=== PATIENT | male | born 1980 | race Caucasian/White ===

== ENCOUNTER 2018-07-18 06:12 | Observation (INO) ==
[2018-07-18 06:18] LABS: BASO# 0.02 X1000 (0.0-0.2); BASO% 0.4 % (0.0-0.8); EOS# 0.03 X1000 (0.0-0.7); EOS% 0.6 % (0.0-10.0); HEMATOCRIT 39.3 % (42.0-52.0); HEMOGLOBIN 13.5 g/dL (14.0-18.0); LYMPH% 27.5 % (20.5-51.1); MCH 29.9 PG (27-31); MCHC 34.4 g/dL (33-37); MCV 86.9 FL (81-99); MONO% 5.9 % (1.7-9.3); MPV 9.6 FL (7.4-10.4); NEUT# 3.34 X1000 (1.4-6.5); NEUT% 65.6 % (42.2-75.2); PLT 204 X1000 (130-400); RBC 4.52 XMIL (4.7-6.1); RDW 12.3 % (11.5-14.5); WBC 5.09 X1000 (4.8-10.8)
--- NOTE | 2018-07-18 06:19 | PROVIDER DOCUMENTATION ---
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 Pain Radiation: reports: no radiation Quality of Pain: reports: burning Severity: reports: moderate Onset/Duration: reports: abrupt, just prior to arrival Timing: reports: gone now Context/Activities at Onset: reports: light activity Modifying Factors: improves with: nothing Associated Symptoms: reports: denies symptoms. denies: anxiety, cough Similar Symptoms Previously?: No Recently seen or treated by another doctor?: No Review of Systems - Adult - REVIEW OF SYSTEMS - ADULT Constitutional: denies: fever, fatique Eyes: reports: no symptoms reported Ears, Nose, Mouth & Throat: reports: no symptoms reported Cardiovascular: reports: chest pain Respiratory: reports: no symptoms reported Gastrointestinal: reports: no symptoms reported Genitourinary: reports: no symptoms reported Musculoskeletal: reports: no symptoms reported Integumentary: reports: no symptoms reported Neurological: reports: no symptoms reported Psychiatric: reports: no symptoms reported Endocrine: reports: no symptoms reported Hematologic/Lymphatic: reports: no symptoms reported Allergic/Immunologic: reports: no symptoms reported Past History - Adult - PAST MEDICAL HISTORY-ADULT Review of Records: reports: Nursing Assessment Review Physical Exam-General - PHYSICAL EXAM-ADULT Initial Vital Signs Reviewed: Yes - CONSTITUTIONAL General Appearance: appears well, alert - EYES Eyes: PERRL/EOMI - HEAD, EARS, NOSE, MOUTH & THROAT HENMT: normocephalic/atraumatic - NECK Neck: non-tender, full range of motion, supple, normal inspection - RESPIRATORY Respiratory: chest non-tender, lungs clear - CARDIOVASCULAR Cardiovascular: normal peripheral pulses, regular rate, rhythm, no edema, no gallop, no JVD, no murmur - GASTROINTESTINAL (ABDOMEN) Abdominal Exam: normal bowel sounds, non tender, soft - LYMPHATIC Lymphatic: no adenopathy - MUSCULOSKELETAL Back Exam: normal inspection, no CVA tenderness, no vertebral tenderness Extremity: normal range of motion, non-tender, normal gait, normal inspection, n o pedal edema, no calf tenderness - SKIN Integumentary: normal color - NEUROLOGIC Neurologic: ham boner II-XII nml as tested, grossly normal, no motor/sensory deficits - PSYCHIATRIC Psych/Mental Status: normal mood/affect Progress - PLAN OF CARE/RESULTS Progress/Plan/Lab Results: Vital Signs - 8 hr 07/18/18 06:00 Temperature 99 F Pulse Rate 78 Respiratory Rate 18 Blood Pressure 143/76 O2 Sat by Pulse Oximetry 98 Orders Category Date Time Status CBC WITH DIFF [HEME] Stat Lab 07/18/18 06:04 Results CK PROFILE [SP CHEM] Stat Lab 07/18/18 06:04 Received COMPREHENSIVE METABOLIC PANEL [CHEM] Stat Lab 07/18/18 06:04 Received TROPONIN T Stat Lab 07/18/18 06:04 Received Result Diagrams: 07/18/18 06:04 07/18/18 06:04 - REASSESSMENT Reassessment #1 Time Reassessed: 08:05 (assumed care @ S/O. Pt seen, examined. Was sitting @ wortk, sudden onset of burning/pressure/tight CP (pt uses all 3 terms to describe) along with SOB, says felt like was going to pass out, vision blurred. Went to EMT @ work, BP was high. was given Nitro spray. Pain non radiating, no N/V. Did have palpitations. No personal/family hx CAD. Does not smoke. No energy/undue caffiene use. ) Status: improving - EKG 1 Time of EKG reading by physician:: 06:24 EKG Interpretation (*Must complete 3 of following elements*): Normal [place]: normal QRS: normal DE Interval: normal ST Wave: normal Prior EKG Comparison: no prior EKG - CONSULTS/PCP/HOSPITALIST Notification #1 *Consult/PCP/Hospitalist*: Angulo Time Discussed: 10:55 Consult Disposition: Will see in ED, Admit - CHANGE OF SHIFT REPORT (ED Provider) 1 Report Given and Care Transferred to:: Rodolfo Time of Transfer: 07:00 Items Pending: Labs Departure - Departure Date of Disposition Decision: 07/18/18 Time of Disposition Decision: 10:55 DIAGNOSIS: Chest pain at rest, Hypocalcemia Disposition: ADMITTED INPATIENT 09 Certified Medical Emergency: Emergent Condition: Good Referrals and Follow-Ups: Radha Ya MD [Primary Care Provider] - - Critical Care Note This patient required my direct & personal management of CC.: No Attestation - Physician/ JARAD Attestation Patient care was provided by Advanced Practice Provider:: No The physician spent face to face time with patient:: Yes Advanced Practice Provider documentation review:: Supervising physician onsite and consulted in the evaluation and care of this patient. The physician did have a face to face encounter with the patient.
[2018-07-18 07:09] LABS: AGAP 10; ALB/GLOB RATIO 1.9; ALBUMIN 3.4 g/dL (3.5-5.0); ALKALINE PHOSPHATASE 51 U/L (32-122); BUN 14 mg/dL (8-22); CHLORIDE 112 mmol/L (98-107); CK PROFILE 81 U/L (24-204); COSMO 284; CREATININE 0.9 mg/dL (0.7-1.2); ESTIMATED GFR > 60; GLUCOSE 100 mg/dL (70-104); GOT 15 U/L (10-34); GPT 19 U/L (10-44); SODIUM 142 mmol/L (136-145); TCO2 20 mmol/L (25-35); TOTAL BILIRUBIN 0.17 mg/dL (0.20-1.00); TOTAL PROTEIN 5.2 g/dL (6.3-8.3)
[2018-07-18 07:18] LABS: UR AMPHETAMINES QUAL NONE DETECTED (NONE DETECT); UR BARBITUATES QUAL NONE DETECTED (NONE DETECT); UR BENZODIAZEPIN QUAL NONE DETECTED (NONE DETECT); UR CANNABINOIDS QUAL NONE DETECTED (NONE DETECT); UR COCAINE QUAL NONE DETECTED (NONE DETECT); UR METHADONE QUAL NONE DETECTED (NONE DETECT); UR OPIATES QUAL NONE DETECTED (NONE DETECT); UR OXYCODONE QUAL NONE DETECTED (NONE DETECT); UR PCP QUAL NONE DETECTED (NONE DETECT)
--- NOTE | 2018-07-18 08:24 | Diag Imaging Result Doc PS360 ---
CHEST-2 VIEWS - 07/18/2018 INDICATION: short of breath COMPARISON: None FINDINGS: The lungs are normally expanded and clear. Heart size and mediastinal contours are normal. No pneumothorax or pleural effusion. IMPRESSION: Negative exam. Electronically signed by Robert Rendon 07/18/2018 8:21 AM
--- NOTE | 2018-07-18 08:51 | EKG Report ---
Test Performed on : 07/18/2018 05:59:34 AM Test Reason : ED. NO EKG ORDER FOR MUSE Blood Pressure : / mmHG Vent. Rate : 085 BPM Atrial Rate : 085 BPM P-R Int : 132 ms QRS Dur : 086 ms QT Int : 360 ms P-R-T Axes : 035 035 021 degrees QTc Int : 428 ms Normal sinus rhythm. Normal ECG No previous ECGs available Unconfirmed Result
[2018-07-18] MEDS ORDERED: CALCIUM CHLORIDE 1 GM in NS 100 ML IV ONE (09:31)
[2018-07-18] MEDS ORDERED: POTASSIUM CHLORIDE 20% LIQUID PO ONE (09:31)
[2018-07-18] MEDS ORDERED: CALCIUM GLUCONATE 2 GM in NS 100 ML IV ONE (09:37)
[2018-07-18 10:02] LABS: MAGNESIUM 1.5 mg/dL (1.5-2.7); PHOSPHORUS 2.4 mg/dL (2.7-4.5)
[2018-07-18] MEDS ORDERED: CALCIUM GLUCONATE 2 GM in D5W 100 ML IV ONE (10:15)
[2018-07-18] MEDS ORDERED: SODIUM CHLORIDE 0.9% INJ SCH (11:15)
[2018-07-18] MEDS ORDERED: PROTONIX IV SCH (11:15)
--- NOTE | 2018-07-18 15:32 | HISTORY AND PHYSICAL ---
PRIMARY CARE PROVIDER: Dr. Radha Ya. CHIEF COMPLAINT: Heart racing, palpitations, tightness in chest. HISTORY OF PRESENT ILLNESS: Mr. Villar is a pleasant 38-year-old male, who really carries no past medical history, except for some complaints of occasional GERD. 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 Around 0430 hours, he started to feel like he was going to pass out. He got disoriented and weak. Heart was racing with palpitations and some chest tightness. He became shaky, blurry vision, shortness of breath, a warm sensation across his chest. He did not have any associated nausea, vomiting, diaphoresis, or headache. However, he went to the EMT at his work, and his blood pressure they took 3 times was high at EMS. He said it was around 210/160. This all lasted until he was given sublingual nitroglycerin spray, as well as an aspirin. He felt like in the ER, he was about to have another episode; however, it went away quickly. He states he does still feel a little off, but he has been up for almost 24 hours. So, just really more of a tiredness now. We have already sent him for a stress test and echocardiogram. We are currently awaiting those results. He had several lab abnormalities. His chloride was a little elevated. His calcium was low at 7.0. His phos was low at 2.4. His urinalysis and tox screen were negative. His electrolytes have been replenished. We will recheck those in the a.m. Again, we are awaiting the results of his echocardiogram, as well as his stress test. He is admitted to the medical telemetry floor for further evaluation and treatment. PAST MEDICAL HISTORY: Occasional GERD. PAST SURGICAL HISTORY: None. SOCIAL HISTORY: He is . He has a 14-year-old daughter. He lives here in [place]. He works at a [employer] out by [place] where he works lieutenant shift supervisor. No alcohol, tobacco, or illicit drug use. FAMILY HISTORY: He has a sister who has -related cardiomyopathy and several issues over the years with that. Father, mother, brother, sister with hypertension. No FL's. No cancer. Grandmother on his mother's side has a remote history of breast cancer. ALLERGIES: No known drug allergies. HOME MEDICATIONS: None. REVIEW OF SYSTEMS: A 14 point review of systems completely negative, except for those mentioned in HPI. PHYSICAL EXAMINATION: VITAL SIGNS: Temperature was 99 degrees, heart rate 78, respirations 18, blood pressure 143/76, O2 is 97% to 99% on room air. GENERAL: Mr. Villar is a pleasant 38-year-old male, who is lying in the bed in no acute distress. HEENT: Atraumatic, normocephalic. PERRL. NECK: Supple. Trachea midline. CARDIOVASCULAR: S1, S2 appreciated. No murmurs, gallops, rubs noted. RESPIRATORY: Lung sounds clear bilaterally. ABDOMEN: Soft, nontender, nondistended. Positive bowel sounds 4 quadrants. EXTREMITIES: Negative for edema. Bilateral pedal pulses are palpable. No clubbing, no cyanosis. SKIN: Warm, dry, and intact. NEUROLOGIC: No focal deficits noted. DIAGNOSTIC DATA: Chest x-ray: Negative exam. Initial EKG: Normal sinus rhythm at 85 beats per minute. LABORATORY DATA: White count 5, hemoglobin and hematocrit 13 and 39, platelet count is 204. Sodium 142, potassium 4.1, chloride 112, carbon dioxide 20. BUN 14, creatinine 0.9, blood glucose 100, calcium 7, phosphorus 2.4, Mag 1.5, T- bilirubin 0.17, albumin 3.4. Toxicology screen negative. ASSESSMENT AND PLAN: 1. Hypocalcemia and hypophosphatemia. Will continue to replenish his electrolytes. 2. Hypertensive episode that has since resolved with the administration of nitroglycerin and aspirin. We will continue to monitor his blood pressures. 3. Chest discomfort. Will rule out myocardial infarction. We will check an echocardiogram, stress test. Again, we will continue to trend his cardiac enzymes and, based on his test results, we will consult Cardiology as needed. We will follow up with his thyroid stimulating hormone. He is currently chest pain-free. 4. Gastroesophageal reflux disease, occasional. Aware. Further recommendations to follow physician evaluation, laboratory and diagnostic data. Dictated by YANA Schmitt for Mason Serna MD cc: Mason Serna MD
[2018-07-19 07:39] LABS: BASO# 0.02 X1000 (0.0-0.2); BASO% 0.4 % (0.0-0.8); EOS# 0.05 X1000 (0.0-0.7); EOS% 0.9 % (0.0-10.0); HEMATOCRIT 44.7 % (42.0-52.0); HEMOGLOBIN 15.5 g/dL (14.0-18.0); LYMPH# 2.27 X1000 (1.2-3.4); LYMPH% 40.2 % (20.5-51.1); MCH 30.3 PG (27-31); MCHC 34.7 g/dL (33-37); MCV 87.5 FL (81-99); MONO% 8.9 % (1.7-9.3); MPV 9.9 FL (7.4-10.4); NEUT% 49.6 % (42.2-75.2); PLT 223 X1000 (130-400); RBC 5.11 XMIL (4.7-6.1); RDW 12.8 % (11.5-14.5); WBC 5.64 X1000 (4.8-10.8)
--- NOTE | 2018-07-19 07:44 | EKG Report ---
Test Performed on : 07/19/2018 07:25:20 AM Test Reason : CP Blood Pressure : / mmHG Vent. Rate : 058 BPM Atrial Rate : 058 BPM P-R Int : 144 ms QRS Dur : 092 ms QT Int : 428 ms P-R-T Axes : 049 049 050 degrees QTc Int : 420 ms Sinus bradycardia. with marked sinus arrhythmia. Otherwise normal ECG When compared with ECG of 18-JUL-2018 05:59, (Unconfirmed) Nonspecific T wave abnormality no longer evident in Inferior leads Confirmed by Pavel LEI, Tonio ([id number]) on 07/19/2018 8:40:49 AM
[2018-07-19 08:04] LABS: AGAP 12; ALB/GLOB RATIO 1.7; ALBUMIN 4.2 g/dL (3.5-5.0); ALKALINE PHOSPHATASE 63 U/L (32-122); BUN 19 mg/dL (8-22); CALCIUM 8.7 mg/dL (8.8-10.2); CHLORIDE 105 mmol/L (98-107); COSMO 283; ESTIMATED GFR > 60; GLUCOSE 89 mg/dL (70-104); GOT 20 U/L (10-34); GPT 25 U/L (10-44); MAGNESIUM 1.9 mg/dL (1.5-2.7); POTASSIUM 4.1 mmol/L (3.5-5.1); SODIUM 141 mmol/L (136-145); TCO2 24 mmol/L (25-35); TOTAL BILIRUBIN 0.46 mg/dL (0.20-1.00); TOTAL PROTEIN 6.7 g/dL (6.3-8.3)
[2018-07-19 12:00] VITALS: BP 115/73
[2018-07-19 14:17] LABS: CHOLESTEROL 198 mg/dL (0-200); HDL 42 mg/dL (35-55); LDL 142 mg/dL; TRIGLYCERIDES 72 mg/dL (39-160); URIC ACID 6.8 mg/dL (3.4-7.0); VLDL 14 mg/dL
--- NOTE | 2018-07-19 14:25 | CARDIOLOGY CONSULTATION ---
DATE: 07/19/2018 CONSULTATION REQUESTED BY: Hospitalist Service REASON FOR CONSULTATION: Abnormal echocardiogram with hypertension, uncontrolled. HISTORY: Mr. Villar is a 38-year-old, male, who was at work at about 4 o'clock in the morning on July 18 when suddenly he developed a sensation of dizziness, lightheadedness. He felt like something "hit him" suddenly. He had a sensation of warmth in the chest. 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 They checked his blood pressure 3 times and it was very high with systolic in the range of 210 to 220 mmHg. He felt his heart pumping hard. He had a little bit of blurred vision. At that time, they decided to summon the emergency medical services. He was brought to this hospital for evaluation. In the ER, they did check his blood pressure after he had received nitroglycerin, and the highest number measured was 158/80. All the other numbers are lower. He was ruled out for myocardial infarction. They checked a total of 3 troponin levels between 6 a.m. in the morning July 18 through 7 a.m. July 19, all of them negative. Twelve lead electrocardiogram was done repeatedly and shows sinus bradycardia with sinus arrhythmia. The patient basically had no further symptoms. He has been asymptomatic for the past 24 hours. They did an echocardiogram yesterday that suggested that his ejection fraction was decreased, and they arranged for a stress test which was done today. I am seeing the patient at 1:30 in the afternoon in his room. He is fine. His is next to him. He has no more complaints. PAST HISTORY: Only positive for occasional acid reflux. He also has migraine headaches. He says that they happen for many years intermittently. SURGICAL HISTORY: Negative. SOCIAL HISTORY: He is to his . They have 1 daughter. He works night shifts at the [employer] here in [place]. He is scheduled from 6 p.m. to 6 a.m. every day. He has been drinking occasionally V8 beverage with "energy drink". He has no smoking history. No alcohol history. FAMILY HISTORY: A few members with hypertension. No heart attacks. MEDICATIONS: He does not take any prescription medicine. ALLERGIES: He has no allergies. REVIEW OF SYSTEMS: Basically he is healthy. He is physically fit, although his body mass index is 28.8, meaning that he is slightly overweight. He has no limitation to perform physical activity PHYSICAL EXAM: Vital Signs: Today blood pressure 115/73, temperature 98 degrees, pulse 80, respirations 16. General: He is awake, alert, oriented, in no distress. HEENT: Unremarkable. Chest: Clear to auscultation and percussion. Heart: Sounds regular and rhythmic. No gallop or murmur. Abdomen: Nontender, soft. No masses. No hepatomegaly. Extremities: Good pulses. No peripheral edema. Neurologic: Nonfocal. Moves 4 extremities. LABS: His blood work today: Hemoglobin 15.5, hematocrit 44.7, sodium 141, potassium 4.1. BUN 19, creatinine 1.0. TSH is normal. PTH is normal. His calcium today is normal. His proBNP is normal. IMPRESSION: 1. Patient who presented with dizziness, lightheadedness and significantly elevated blood pressure. This appeared to be hypertensive urgency. 2. History of migraine headaches. RECOMMENDATIONS: I have reviewed the patient's echocardiogram that was done yesterday. It was performed by Ms. Beth Forman. Study is basically normal. His ejection fraction in my opinion is 55 to 60 percent. I have also reviewed his stress test from today. He has some soft tissue attenuation artifact on both stress and rest images, creating a little bit of a patchy perfusion. However, there is no defect to suspect coronary heart disease. The resting and stress ejection fraction is normal. The patient was able to walk on the treadmill for 9 minutes without showing any ischemic changes. His peak heart rate on the treadmill was 166 beats per minute. Exercise capacity was decreased by 17 percent. His peak blood pressure on this exercise stress test was 155/92, which is not even hypertensive. At this time. I really do not have any further suggestions. The reason for why he developed this severe hypertension is unclear. It could have been reflexive due to some transient sympathetic overstimulation. Of note, he may have been at that time in an area where there was limited oxygen supply or possibility of carbon monoxide. They have not checked blood gases on him. At any rate, it does not seem that the patient has sustained hypertension nor cardiomyopathy nor inducible ischemia on the stress test. No valvular disease. His chest x-ray was reportedly normal. At this time, I have suggested to the patient and the to monitor his blood pressure at home twice a day for the next month, and I will see him at the end of that time to see if there has been any development. At this time, I do not advice initiating any pharmacological therapy for hypertension. I think the patient is clinically stable. He may be discharged whenever he is deemed appropriate for discharge. I will be adding a lipid panel to his blood work to make sure that we are not missing significant hyperlipidemia in this case. cc: Regis Hammond MD MTDD
--- NOTE | 2018-07-19 14:59 | ECHO REPORT ---
ORDER DATE: 07/18/2018 INDICATION: Chest pain, shortness of breath, possible CHF. FINDINGS: 1. The right atrium is mildly enlarged at 4 cm. 2. Trace tricuspid regurgitation. RV systolic pressure is estimated at 30 mmHg. 3. Normal RV size and systolic function. 4. Mild pulmonic insufficiency. 5. Normal left atrial size with a dimension of 3.1 cm. 6. No mitral valve prolapse. There is mild mitral regurgitation. 7. Normal LV size with an end-diastolic dimension of 4.9 cm. Normal wall thicknesses with a posterior and interventricular septal wall thickness of 1.0 cm each. Normal LV systolic function. The estimated EF is 55% with no obvious segmental wall motion abnormalities. 8. The aortic valve appears to open well. It is trileaflet. There is no significant degree of stenosis or insufficiency of the valve. 9. The aorta does appear somewhat dilated at the sinuses with a measurement of 4.3 cm. 10. There is no clear evidence of pericardial effusion on this study. cc: MD Mason Gabriel MD
--- NOTE | 2018-07-19 16:52 | Diag Imaging Result Document ---
PROCEDURE NAME: MYOCARDIAL PERF SCAN, STR/REST - 07/18/2018 EXERCISE SESTAMIBI INTERPRETATION: SUMMARY: The patient underwent resting sestamibi study on 07/18/2018. The patient was administered 35.9 mCi of technetium 99-m sestamibi, after which resting cardiac images were obtained. Patient underwent exercise sestamibi study on 07/19/2018. The patient was exercised on treadmill according to a Rehan protocol and exercised for a total of 9 minutes and 5 seconds, achieving a maximum workload of stage 3 and 10.1 METS. With exercise, the heart increased from 65 beats per minute to, 166 beats per minute representing 90% of maximal age-predicted heart rate. The blood pressure increased from 124/76 to 160/90. With exercise, the patient denied chest discomfort. At peak exercise, the patient was administered 35.6 mCi of technetium-99m sestamibi, after which gated stress cardiac images were obtained. Baseline ECG demonstrates sinus rhythm. With exercise, there were no diagnostic ST-segment changes. SPECT images were reconstructed in the short, horizontal long, and vertical long axes. Review of these images demonstrated mildly diminished activity in the basal inferior wall on stress images, which appears similar on resting images. No significant reversibility is evident. Gated images demonstrate a calculated left ventricular ejection fraction of 62% with symmetrical wall motion/thickening. CONCLUSIONS: 1. Average aerobic capacity for age. Target heart rate achieved. 2. Clinically negative for chest pain. 3. Electrocardiographically negative for exercise-induced myocardial ischemia. 4. Exercise sestamibi images demonstrate fixed mildly diminished activity in the basal inferior wall with corresponding preserved regional wall motion probably due to soft tissue attenuation. There is no convincing scintigraphic evidence of inducible myocardial ischemia. Normal left ventricular systolic function demonstrated. cc: MD Mason Kee MD
--- NOTE | 2018-07-20 09:28 | DISCHARGE SUMMARY ---
ADMISSION DATE: 07/18/2018 DISCHARGE DATE: 07/19/2018 ADMITTING DIAGNOSES: 1. Hypocalcemia and hypophosphatemia. 2. Hypertensive urgency. 3. Chest discomfort. 4. Gastroesophageal reflux disease. DISCHARGE DIAGNOSES: 1. Hypocalcemia and hypophosphatemia, resolved. 2. Hypertensive urgency, resolved. 3. Chest discomfort, resolved. 4. Gastroesophageal reflux disease. CONSULTATIONS: Dr. Regis Hammond with Cardiology. DIAGNOSTIC PROCEDURES AND FINDINGS: Myocardial perfusion scan on 07/18/2018 with mildly diminished activity in the basal inferior wall with corresponding preserved regional wall motion, probably due to soft tissue attenuation. No convincing scintigraphic evidence of inducible myocardial ischemia. Normal LV systolic function demonstrated. No diagnostic ST segment changes with exercise. He reached maximum work load of stage 3 and 10.1 METS. Echocardiogram on 07/18/2018 showed EF of 55%. No obvious segmental wall motion abnormalities. EKG on 07/19/2018 is sinus bradycardia with sinus arrhythmia. HOSPITAL COURSE: Mr. Villar is a 38-year-old male with history of GERD, who presented after work early in the morning on the day of admission. At around 4:30, he started having presyncope, disorientation, weakness, palpitations, chest tightness, shaky, blurring vision, shortness of breath. He had a V8 energy drink around 2330. At work, hog feeder were called, and he was noted to be hypertensive. He was given sublingual nitroglycerin as well as aspirin. He got to the ER and was noted to have hypocalcemia and hypophosphatemia. He has a strong family history of cardiac. His sister had related cardiomegaly, but there was no other coronary disease noted in his family history. We consulted Cardiology who stressed him, which was ultimately negative, and echocardiogram did not reveal any acute findings, either. There were no urgent recommendations from Cardiology. It was felt that it was possibly secondary to energy drinks. Ultimately, it was felt the patient was stable for discharge home, and he should be checking his blood pressure multiple times a day for 1 month. He is also to follow up with Dr. Hammond in 1 month. Overall, he is pain free and now stable for discharge home. DISCHARGE MEDICATIONS: None. DISCHARGE ACTIVITY: Resume activity as tolerated. DISCHARGE DIET: Regular diet. DISPOSITION AND OTHER DISCHARGE INSTRUCTIONS: The patient is discharged home to self care. He is to follow up with Dr. Hammond within the month. Their office will call for a time. He is to stop drinking energy drinks and obviously return to the ER or call 911 for worsening complaints or concerns. All questions answered. Discharge time is greater than 35 minutes. Dictated by YANA Hernandez for Mason Serna MD cc: YANA Hernandez MD Luis N. Villanueva, MD
== END 2018-07-19 15:14 | disposition home or self-care (01) ==
LOC: ED 06:12 → 3N 06:12
PROVIDERS: ATTEND Internal Medicine
CPT/HCPCS: 71020; 71046; 78452; 80053; 80061; 80101; 80301; 80307; 80324; 80345; 80346; 80353; 80358; 80361; 80365; 82306; 82550; 83735; 83880; 83970; 83992; 84100; 84132; 84443; 84484; 84550; 85025; 93005; 93010; 93017; 93306; 96374; 99285; A9270; A9500; G0431; G0434; G0479; G0480; J0610; J7060